=== PATIENT | male | born 1965 | race Caucasian/White ===

== ENCOUNTER 2021-07-14 14:40 | Emergency (ER) | payer MEDICAID ==
[~2021-07-14] VITALS: Ht 180.3 cm; Wt 90.0 kg
[2021-07-14 15:00] VITALS: BP 170/135
== END 2021-07-14 15:59 | disposition left against medical advice (07) ==
LOC: ER 14:41
DX: R03.0 Elevated blood-pressure reading, without diagnosis of hypertension (principal); Z53.21 Procedure and treatment not carried out due to patient leaving prior to being seen by health care provider